=== PATIENT | male | born 1945 | race Caucasian/White ===

== ENCOUNTER 2020-02-04 11:19 | Emergency (ER) | payer MEDICARE ==
[~2020-02-04] VITALS: Ht 172.7 cm; Wt 106.0 kg
--- NOTE | 2020-02-04 13:07 | NUR ---
IRONMOLDER: PT TO ROOM FROM [facility]
--- NOTE | 2020-02-04 13:24 | NUR ---
PT IS A 74/M WHO FELL FROM A FENCE TODAY HEARING A POP AND HAVING PAIN IN HIS LEFT KNEE AND THIGH AREA. HE IS ABLE TO BEAR WEIGHT ON THE LEG BUT IT IS PAINFUL. TOOK 800MG IBUPROFEN BEFORE COMING TO THE ER. PROVIDER AT BEDSIDE FOR EVAL. CALL LIGHT IN PLACE, SPOUSE AT BEDSIDE.
[2020-02-04 13:26] VITALS: BP 169/82
--- NOTE | 2020-02-04 13:40 | NUR ---
Patient/Caregiver given discharge instructions and they have confirmed that they understand the instructions. Patient ambulates independently with limp. Spouse at side.
== END 2020-02-04 13:45 | disposition home or self-care (01) ==
LOC: ED 12:00
DX: S70.12XA Contusion of left thigh, initial encounter (principal); W18.30XA Fall on same level, unspecified, initial encounter; Y93.89 Activity, other specified; Y92.009 Unspecified place in unspecified non-institutional (private) residence as the place of occurrence of the external cause; Y99.8 Other external cause status
CPT/HCPCS: 99283